=== PATIENT | male | born 2000 | race Caucasian/White ===

== ENCOUNTER 2022-01-03 10:45 | Emergency (ER) | payer OTHER ==
[~2022-01-03] VITALS: Ht 177.8 cm; Wt 61.4 kg
[2022-01-03 10:46] VITALS: BP 114/71
[2022-01-03] MEDS ORDERED: LIDOCAINE 1%/EPI 1:100,000 30 ML VIAL ID ONE (11:15)
== END 2022-01-03 12:25 | disposition home or self-care (01) ==
LOC: EMS 10:50
DX: S01.81XA Laceration without foreign body of other part of head, initial encounter (principal); F12.90 Cannabis use, unspecified, uncomplicated; V00.138A Other skateboard accident, initial encounter; Y93.51 Activity, roller skating (inline) and skateboarding; Y92.89 Other specified places as the place of occurrence of the external cause; Y99.8 Other external cause status
CPT/HCPCS: 12011; 99282; J3490

== ENCOUNTER 2022-05-06 09:59 | Emergency (ER) | payer OTHER ==
[~2022-05-06] VITALS: Ht 177.8 cm; Wt 59.0 kg
[2022-05-06 17:05] VITALS: BP 116/71
== END 2022-05-06 17:00 | disposition home or self-care (01) ==
LOC: EMS 09:59
DX: M25.521 Pain in right elbow (principal); F12.90 Cannabis use, unspecified, uncomplicated
CPT/HCPCS: 29105; 99283

== ENCOUNTER 2024-03-12 07:49 | Emergency (ER) | payer MEDICAID, OTHER ==
[~2024-03-12] VITALS: Ht 177.8 cm; Wt 61.4 kg
[2024-03-12] MEDS: KETOROLAC TROMETHAMINE 30 MG/ML VIAL IM ONE (08:07)
[2024-03-12] MEDS: HYDROCODONE/ACETAMINOPHEN 5-325 MG TABLET PO ONE (08:07)
[2024-03-12 08:30] VITALS: TEMP 98.1
[2024-03-12] MEDS ORDERED: IBUP-1492 PO (08:31)
[2024-03-12 09:03] VITALS: BP 118/69; PULSE 60; RESP 16
== END 2024-03-12 10:29 | disposition home or self-care (01) ==
LOC: EMS 07:49
DX: S59.101A Unspecified physeal fracture of upper end of radius, right arm, initial encounter for closed fracture (principal); F12.90 Cannabis use, unspecified, uncomplicated; V00.131A Fall from skateboard, initial encounter; Y93.89 Activity, other specified; Y92.89 Other specified places as the place of occurrence of the external cause; Y99.8 Other external cause status
CPT/HCPCS: 99284; 73080; 73090; 29125; 96372; J1885

== ENCOUNTER 2024-04-04 07:55 | Emergency (ER) | payer BC, MEDICAID ==
[~2024-04-04] VITALS: Ht 177.8 cm; Wt 61.4 kg
[~2024-04-04 07:55] MED LIST: IBUP-1492 PO
[2024-04-04 07:59] VITALS: TEMP 98.3
[2024-04-04] MEDS ORDERED: IBUP-1492 PO (09:11)
[2024-04-04] MEDS ORDERED: ACET-2247 PO (09:11)
[2024-04-04] MEDS: IBUPROFEN 600 MG TABLET PO ONE (09:15)
[2024-04-04 09:40] VITALS: BP 115/72; PULSE 74; RESP 16
== END 2024-04-04 09:41 | disposition home or self-care (01) ==
LOC: EMS 07:55
DX: S76.011A Strain of muscle, fascia and tendon of right hip, initial encounter (principal); F12.90 Cannabis use, unspecified, uncomplicated; Z88.0 Allergy status to penicillin; V00.131A Fall from skateboard, initial encounter; Y93.89 Activity, other specified; Y92.89 Other specified places as the place of occurrence of the external cause; Y99.8 Other external cause status
CPT/HCPCS: 73502; 99283